=== PATIENT | male | born 1950 | race Asian ===

== ENCOUNTER → 2024-05-14 | Outpatient (CLI) | payer OTHER, SELFPAY ==
[2024-05-14 12:51] LABS: Basophils % (Auto) 1 % (0-2.5); Eosinophils # (Auto) 0.3 Thou/mm3 (0.0-0.5); Eosinophils % (Auto) 7 % (0-10); Hematocrit 30.7 % (41.0-53.0); Hemoglobin 10.3 g/dL (13.5-16.0); Immature Granulocytes % (Auto) 1 % (0-0); Immature Granulocytes Auto 0.02 Thou/mm3 (0.00-0.00); Lymphocytes # (Auto) 0.5 Thou/mm3 (1.0-4.8); Lymphocytes % (Auto) 11 % (10-50); Mean Corpuscular HGB Conc 33.6 g/dl (31.0-37.0); Mean Corpuscular Hemoglobin 33.1 pg (25.0-35.0); Mean Corpuscular Volume 99 fL (80-100); Monocytes # (Auto) 0.2 Thou/mm3 (0.0-0.8); Monocytes % (Auto) 5 % (0-12); Neutrophils # (Auto) 3.2 Thou/mm3 (1.8-7.7); Neutrophils % (Auto) 76 % (37-80); Nucleated Red Blood Cell % 0 /100 WBC (0); RDW Standard Deviation 61.6 fL (35.1-43.9); Red Blood Count 3.11 Miln/mm3 (4.50-5.90); White Blood Count 4.2 Thou/mm3 (3.8-10.6)
[2024-05-14 13:07] LABS: Platelet Count 56 Thou/mm3 (140-440)
[2024-05-14 13:11] LABS: Alanine Aminotransferase 22 U/L (10-49); Albumin/Globulin Ratio 1.2 (1.2-2.2); Alkaline Phosphatase 177 U/L (46-116); Amylase 165 U/L (30-118); Anion Gap 4 (7-16); Aspartate Amino Transferase 30 U/L (0-34); BUN/Creatinine Ratio 14 Ratio (12-20); Blood Urea Nitrogen 25 mg/dL (9-23); Calcium 9.4 mg/dL (8.3-10.6); Calcium (Corrected) 9.4 mg/dL (8.5-10.1); Carbon Dioxide 24.7 mMol/L (20.0-31.0); Chloride 108 mMol/L (98-107); Creatinine (Component) 1.8 mg/dL (0.6-1.3); Globulin 3.4 gm/dL (2.3-3.5); Glucose 151 mg/dL (74-106); Lipase 41 U/L (12-53); Osmolality,Calculated 281 (275-295); Potassium 5.5 mMol/L (3.4-5.1); Sodium 137 mMol/L (136-145); Total Protein 7.4 gm/dL (5.7-8.2); eGFR 39 See Note
[2024-05-14 13:14] LABS: Slide Review Platelets confirmed
[2024-05-18 03:04] LABS: HCV RNA, PCR <15 NOT DETECTED IU/mL
[2024-05-18 06:49] LABS: HCV RNA, PCR Log IU <1.18 NOT DETECTED Log IU/mL
== END | disposition home or self-care (01) ==
LOC: COPL 12:14
PROVIDERS: PCP Internal Medicine; Referring Provider Specialist; Visit Provider Specialist
DX: B17.10 Acute hepatitis C without hepatic coma (principal)
CPT/HCPCS: 36415; 80053; 82105; 82150; 83690; 85025; 87522

== ENCOUNTER → 2024-05-21 | Outpatient (CLI) | payer OTHER, SELFPAY ==
--- NOTE | 2024-05-21 | XR_ITS ---
Examination: Testicular sonography complete TECHNIQUE: By resolution grayscale sonographic images testes with assessment arterial inflow venous outflow Doppler spectral analysis carful analysis INDICATIONS: Left testicular pain one year is 18 fluid from the left testicle FINDINGS: Right testis 3.4 x 1.4 x 2.5 cm Epididymis 10 mm 3 mm epididymal cyst Moderate varicoceles Arterial flow testicle. No testicular mass Mild hydrocele Left testis 3.1 x 1.4 x 2.4 cm Epididymis 9 mm 4 mm epididymal cyst Moderate varicoceles Arterial flow testicle No testicular mass Moderate hydrocele IMPRESSION: No testicular torsion or testicular mass Moderate bilateral varicoceles Moderate left hydrocele
== END | disposition home or self-care (01) ==
LOC: CDIM 09:37
PROVIDERS: PCP Internal Medicine; Referring Provider Internal Medicine; Visit Provider Internal Medicine
DX: I86.1 Scrotal varices (principal); N43.3 Hydrocele, unspecified
CPT/HCPCS: 76870

== ENCOUNTER 2024-06-12 12:45 | Day surgery (SDC) | payer OTHER, SELFPAY ==
[2024-06-12] VITALS (8 sets, daily range): BP systolic 129–166; BP diastolic 72–89; PULSE 68–76; RESP 12–19; TEMP 36.6–36.8; O2SAT 95–100; BMI 25.4
[2024-06-12] MEDS: MIDAZOLAM INJ 1 MG/ML VIAL 2 ML (ASD USE ONLY) 2 MG IV (14:30)
[2024-06-12] MEDS: fentaNYL CIT INJ 50 mCg/ML AMP 2ML (ASD USE ONLY) IV (14:31)
== END 2024-06-12 15:30 | disposition home or self-care (01) ==
PROVIDERS: PCP Internal Medicine; Referring Provider Specialist; Visit Provider Specialist
PROC: (CPT 43239; principal; 2024-06-12 13:15)
DX: I85.00 Esophageal varices without bleeding (principal); K29.70 Gastritis, unspecified, without bleeding
CPT/HCPCS: 43239; J2250; J3010

== ENCOUNTER → 2024-08-14 | Outpatient (CLI) | payer OTHER, SELFPAY ==
[2024-08-14 08:45] LABS: Glucose Estimated Average 169 mg/dL (80-131); Hemoglobin A1C 7.5 % Hgb (4.8-6.0)
[2024-08-14 08:55] LABS: Basophils % (Auto) 1 % (0-2.5); Eosinophils # (Auto) 0.7 Thou/mm3 (0.0-0.5); Eosinophils % (Auto) 15 % (0-10); Hemoglobin 10.4 g/dL (13.5-16.0); Immature Granulocytes % (Auto) 0 % (0-0); Immature Granulocytes Auto 0.01 Thou/mm3 (0.00-0.00); Lymphocytes # (Auto) 0.8 Thou/mm3 (1.0-4.8); Lymphocytes % (Auto) 18 % (10-50); Mean Corpuscular HGB Conc 35.9 g/dl (31.0-37.0); Mean Corpuscular Hemoglobin 33.7 pg (25.0-35.0); Mean Corpuscular Volume 94 fL (80-100); Monocytes # (Auto) 0.3 Thou/mm3 (0.0-0.8); Monocytes % (Auto) 6 % (0-12); Neutrophils # (Auto) 2.5 Thou/mm3 (1.8-7.7); Neutrophils % (Auto) 60 % (37-80); Nucleated Red Blood Cell % 0 /100 WBC (0); RDW Standard Deviation 48.8 fL (35.1-43.9); Red Blood Count 3.09 Miln/mm3 (4.50-5.90); White Blood Count 4.2 Thou/mm3 (3.8-10.6)
[2024-08-14 08:57] LABS: Alanine Aminotransferase 23 U/L (10-49); Albumin, Serum 3.3 gm/dL (3.4-4.8); Albumin/Globulin Ratio 1.2 (1.2-2.2); Alkaline Phosphatase 142 U/L (46-116); Anion Gap 6 (7-16); Aspartate Amino Transferase 24 U/L (0-34); BUN/Creatinine Ratio 15 Ratio (12-20); Blood Urea Nitrogen 30 mg/dL (9-23); Calcium (Corrected) 9.6 mg/dL (8.5-10.1); Carbon Dioxide 24.1 mMol/L (20.0-31.0); Cardiac Risk Estimate 2.6 RATIO (4.0-6.7); Chloride 111 mMol/L (98-107); Cholesterol 169 mg/dL (132-200); Globulin 2.8 gm/dL (2.3-3.5); Glucose 190 mg/dL (74-106); HDL Cholesterol 65 mg/dL (40-60); LDL Cholesterol,Calculated 88 mg/dL (0-130); Osmolality,Calculated 292 (275-295); Potassium 5.1 mMol/L (3.4-5.1); Sodium 141 mMol/L (136-145); Total Protein 6.1 gm/dL (5.7-8.2); Triglycerides 79 mg/dL (30-150); eGFR 34 See Note
[2024-08-14 09:14] LABS: Platelet Count 40 Thou/mm3 (140-440)
[2024-08-14 09:53] LABS: Slide Review Platelets confirmed
== END | disposition home or self-care (01) ==
PROVIDERS: PCP Internal Medicine; Referring Provider Internal Medicine; Visit Provider Internal Medicine
DX: I10 Essential (primary) hypertension (principal); D50.0 Iron deficiency anemia secondary to blood loss (chronic); R94.5 Abnormal results of liver function studies; E78.2 Mixed hyperlipidemia
CPT/HCPCS: 36415; 80053; 80061; 83036; 85025

== ENCOUNTER → 2024-10-02 | Outpatient (CLI) | payer OTHER, SELFPAY ==
[2024-10-02 14:22] LABS: Basophils % (Auto) 1 % (0-2.5); Eosinophils # (Auto) 0.2 Thou/mm3 (0.0-0.5); Eosinophils % (Auto) 9 % (0-10); Hematocrit 27.1 % (41.0-53.0); Hemoglobin 9.4 g/dL (13.5-16.0); Immature Granulocytes % (Auto) 0 % (0-0); Lymphocytes # (Auto) 0.4 Thou/mm3 (1.0-4.8); Lymphocytes % (Auto) 16 % (10-50); Mean Corpuscular HGB Conc 34.7 g/dl (31.0-37.0); Mean Corpuscular Hemoglobin 33.8 pg (25.0-35.0); Mean Corpuscular Volume 98 fL (80-100); Monocytes # (Auto) 0.2 Thou/mm3 (0.0-0.8); Monocytes % (Auto) 6 % (0-12); Neutrophils # (Auto) 1.8 Thou/mm3 (1.8-7.7); Neutrophils % (Auto) 69 % (37-80); Nucleated Red Blood Cell % 0 /100 WBC (0); RDW Standard Deviation 53.2 fL (35.1-43.9); Red Blood Count 2.78 Miln/mm3 (4.50-5.90)
[2024-10-02 14:28] LABS: Platelet Count 33 Thou/mm3 (140-440); White Blood Count 2.6 Thou/mm3 (3.8-10.6)
[2024-10-02 14:33] LABS: Alanine Aminotransferase 40 U/L (10-49); Albumin, Serum 3.5 gm/dL (3.4-4.8); Albumin/Globulin Ratio 1.3 (1.2-2.2); Alkaline Phosphatase 147 U/L (46-116); Anion Gap 7 (7-16); Aspartate Amino Transferase 37 U/L (0-34); BUN/Creatinine Ratio 18 Ratio (12-20); Bilirubin,Total 1.3 mg/dL (0.3-1.2); Blood Urea Nitrogen 32 mg/dL (9-23); Calcium 8.9 mg/dL (8.3-10.6); Calcium (Corrected) 9.3 mg/dL (8.5-10.1); Carbon Dioxide 20.6 mMol/L (20.0-31.0); Chloride 110 mMol/L (98-107); Creatinine (Component) 1.8 mg/dL (0.6-1.3); Globulin 2.8 gm/dL (2.3-3.5); Glucose 314 mg/dL (74-106); Osmolality,Calculated 294 (275-295); Potassium 5.8 mMol/L (3.4-5.1); Sodium 138 mMol/L (136-145); Total Protein 6.3 gm/dL (5.7-8.2); eGFR 39 See Note
[2024-10-02 14:46] LABS: Slide Review Platelets confirmed
[2024-10-02 15:10] LABS: Hepatitis A Antibody IgM Non Reactive (Non React); Hepatitis B Core Antibody IgM Non Reactive (Non React); Hepatitis C Antibody Non Reactive (Non React)
[2024-10-02 17:03] LABS: Hepatitis B Surface Antigen Reactive (Non React)
[2024-10-02 17:05] LABS: ZZHep B Surface Ag Confrm* See Sep Rpt
== END | disposition home or self-care (01) ==
LOC: COPL 13:08
PROVIDERS: PCP Internal Medicine; Referring Provider Nurse Practitioner; Visit Provider Nurse Practitioner
DX: D69.6 Thrombocytopenia, unspecified (principal); K76.9 Liver disease, unspecified
CPT/HCPCS: 36415; 80053; 80074; 82105; 85025; 87340

== ENCOUNTER → 2024-12-31 | Outpatient (CLI) | payer OTHER, SELFPAY ==
[2024-12-31 08:38] LABS: Collection Type, Urine Clean Catch; Squamous Epithelial Cell,Urine 0 /hpf (0-5)
[2024-12-31 09:13] LABS: Basophils # (Auto) 0.0 Thou/mm3 (0.0-0.2); Basophils % (Auto) 1 % (0-2.5); Eosinophils # (Auto) 0.4 Thou/mm3 (0.0-0.5); Eosinophils % (Auto) 11 % (0-10); Hematocrit 25.6 % (41.0-53.0); Immature Granulocytes Auto 0.01 Thou/mm3 (0.00-0.00); Lymphocytes # (Auto) 0.5 Thou/mm3 (1.0-4.8); Lymphocytes % (Auto) 13 % (10-50); Mean Corpuscular HGB Conc 34.4 g/dl (31.0-37.0); Mean Corpuscular Hemoglobin 34.5 pg (25.0-35.0); Mean Corpuscular Volume 100 fL (80-100); Monocytes # (Auto) 0.2 Thou/mm3 (0.0-0.8); Monocytes % (Auto) 6 % (0-12); Neutrophils # (Auto) 2.8 Thou/mm3 (1.8-7.7); Neutrophils % (Auto) 69 % (37-80); Nucleated Red Blood Cell # 0.00 Thou/mm3 (0.00-0.00); Nucleated Red Blood Cell % 0 /100 WBC (0); RDW Standard Deviation 52.1 fL (35.1-43.9); Red Blood Count 2.55 Miln/mm3 (4.50-5.90); White Blood Count 4.0 Thou/mm3 (3.8-10.6)
[2024-12-31 09:16] LABS: Glucose Estimated Average 160 mg/dL (80-131); Hemoglobin A1C 7.2 % Hgb (4.8-6.0)
[2024-12-31 09:22] LABS: Alanine Aminotransferase 67 U/L (10-49); Albumin, Serum 3.8 gm/dL (3.4-4.8); Albumin/Globulin Ratio 1.3 (1.2-2.2); Alkaline Phosphatase 168 U/L (46-116); Anion Gap 6 (7-16); Aspartate Amino Transferase 38 U/L (0-34); BUN/Creatinine Ratio 14 Ratio (12-20); Bilirubin,Total 1.2 mg/dL (0.3-1.2); Blood Urea Nitrogen 30 mg/dL (9-23); Calcium 9.2 mg/dL (8.3-10.6); Calcium (Corrected) 9.4 mg/dL (8.5-10.1); Carbon Dioxide 19.7 mMol/L (20.0-31.0); Cardiac Risk Estimate 2.2 RATIO (4.0-6.7); Chloride 115 mMol/L (98-107); Cholesterol 136 mg/dL (132-200); Creatinine (Component) 2.2 mg/dL (0.6-1.3); Globulin 2.9 gm/dL (2.3-3.5); Glucose 134 mg/dL (74-106); HDL Cholesterol 62 mg/dL (40-60); LDL Cholesterol,Calculated 59 mg/dL (0-130); Osmolality,Calculated 289 (275-295); Sodium 141 mMol/L (136-145); Total Protein 6.7 gm/dL (5.7-8.2); Triglycerides 73 mg/dL (30-150); eGFR 30 See Note
[2024-12-31 09:25] LABS: Potassium 6.5 mMol/L (3.4-5.1)
[2024-12-31 09:26] LABS: Hemoglobin 8.8 g/dL (13.5-16.0); Platelet Count 45 Thou/mm3 (140-440)
[2024-12-31 11:55] LABS: Slide Review Platelets confirmed
[2024-12-31 13:15] LABS: Bilirubin,Urine Negative (Negative); Blood,Urine Negative (Negative); Clarity,Urine Clear (Clear/Hazy); Color,Urine Lt-Yellow (Lt Yel-Yel); Glucose, Urine Negative (Negative); Ketones,Urine Negative (Negative); Leukocyte Esterase,Urine Negative (Negative); Nitrite,Urine Negative (Negative); PH,Urine 6.0 (5.0-7.0); Protein,Urine 2+ (Neg - Trace); RBC,Urine 3 /hpf (0-3); Specific Gravity,Urine 1.017 (1.001-1.035); Urobilinogen,Urine Negative mg/dL (0.0-1.0); WBC,Urine < 1 /hpf (0-5)
== END | disposition home or self-care (01) ==
LOC: COPL 07:16
PROVIDERS: PCP Internal Medicine; Referring Provider Internal Medicine; Visit Provider Internal Medicine
DX: E11.65 Type 2 diabetes mellitus with hyperglycemia (principal); E78.2 Mixed hyperlipidemia; D50.0 Iron deficiency anemia secondary to blood loss (chronic)
CPT/HCPCS: 36415; 80053; 80061; 81001; 83036; 85025

== ENCOUNTER → 2025-01-04 | Outpatient (CLI) | payer OTHER, SELFPAY ==
[2025-01-04 10:54] LABS: Alanine Aminotransferase 40 U/L (10-49); Albumin, Serum 3.9 gm/dL (3.4-4.8); Albumin/Globulin Ratio 1.3 (1.2-2.2); Alkaline Phosphatase 171 U/L (46-116); Anion Gap 7 (7-16); Aspartate Amino Transferase 32 U/L (0-34); BUN/Creatinine Ratio 14 Ratio (12-20); Bilirubin,Total 1.1 mg/dL (0.3-1.2); Blood Urea Nitrogen 31 mg/dL (9-23); Calcium 9.3 mg/dL (8.3-10.6); Calcium (Corrected) 9.4 mg/dL (8.5-10.1); Carbon Dioxide 21.6 mMol/L (20.0-31.0); Chloride 114 mMol/L (98-107); Creatinine (Component) 2.2 mg/dL (0.6-1.3); Globulin 3.0 gm/dL (2.3-3.5); Glucose 163 mg/dL (74-106); Osmolality,Calculated 295 (275-295); Sodium 143 mMol/L (136-145); Total Protein 6.9 gm/dL (5.7-8.2); eGFR 30 See Note
[2025-01-04 10:55] LABS: Potassium 6.9 mMol/L (3.4-5.1)
== END | disposition home or self-care (01) ==
LOC: COPL 09:17
PROVIDERS: PCP Internal Medicine; Referring Provider Internal Medicine; Visit Provider Internal Medicine
DX: I10 Essential (primary) hypertension (principal)
CPT/HCPCS: 36415; 80053

== ENCOUNTER 2025-01-05 09:37 | Emergency (ER) | payer OTHER, SELFPAY ==
[2025-01-05 09:38] VITALS: BMI 23.4
--- NOTE | 2025-01-05 09:45 | EKG_ITS ---
[facility] Test Date: 2025-01-05 Pat Name: LUIZ YODER Department: Room: - Gender: Male Medical Sales Representative: : 1950 Requested By: Omi Copeland (BALLISTIC TECHNICIAN) Order Number: [id number] Reading MD: Omi Copeland (BALLISTIC TECHNICIAN) Measurements Intervals [place] Rate: 63 P: 56 MS: 151 QRS: 26 QRSD: 90 T: 50 QT: 390 QTc: 400 Interpretive Statements SINUS RHYTHM WITH OCCASIONAL VENTRICULAR PREMATURE COMPLEXES Compared to ECG 04/19/2024 19:19:49 Ventricular premature complex(es) now present /store/S0/[id number]/ecg/[id number].pdf
[2025-01-05 09:47] VITALS: BP 151/70; PULSE 65; RESP 17; TEMP 36.6; O2SAT 98
[2025-01-05 10:28] LABS: Basophils # (Auto) 0.0 Thou/mm3 (0.0-0.2); Basophils % (Auto) 1 % (0-2.5); Eosinophils # (Auto) 0.5 Thou/mm3 (0.0-0.5); Eosinophils % (Auto) 12 % (0-10); Hematocrit 27.0 % (41.0-53.0); Hemoglobin 9.5 g/dL (13.5-16.0); Immature Granulocytes Auto 0.00 Thou/mm3 (0.00-0.00); Lymphocytes # (Auto) 0.5 Thou/mm3 (1.0-4.8); Lymphocytes % (Auto) 13 % (10-50); Mean Corpuscular HGB Conc 35.2 g/dl (31.0-37.0); Mean Corpuscular Hemoglobin 34.1 pg (25.0-35.0); Mean Corpuscular Volume 97 fL (80-100); Monocytes # (Auto) 0.2 Thou/mm3 (0.0-0.8); Monocytes % (Auto) 5 % (0-12); Neutrophils # (Auto) 2.8 Thou/mm3 (1.8-7.7); Neutrophils % (Auto) 69 % (37-80); Nucleated Red Blood Cell # 0.00 Thou/mm3 (0.00-0.00); Nucleated Red Blood Cell % 0 /100 WBC (0); RDW Standard Deviation 50.4 fL (35.1-43.9); Red Blood Count 2.79 Miln/mm3 (4.50-5.90); White Blood Count 4.0 Thou/mm3 (3.8-10.6)
[2025-01-05 11:02] LABS: Alanine Aminotransferase 38 U/L (10-49); Albumin, Serum 4.0 gm/dL (3.4-4.8); Albumin/Globulin Ratio 1.3 (1.2-2.2); Alkaline Phosphatase 154 U/L (46-116); Anion Gap 7 (7-16); Aspartate Amino Transferase 35 U/L (0-34); BUN/Creatinine Ratio 13 Ratio (12-20); Bilirubin,Total 1.5 mg/dL (0.3-1.2); Blood Urea Nitrogen 27 mg/dL (9-23); Calcium 9.3 mg/dL (8.3-10.6); Calcium (Corrected) 9.3 mg/dL (8.5-10.1); Carbon Dioxide 20.7 mMol/L (20.0-31.0); Chloride 112 mMol/L (98-107); Creatinine (Component) 2.1 mg/dL (0.6-1.3); Estimated Creatinine Clearance 21.2 mL/min (>60); Globulin 3.1 gm/dL (2.3-3.5); Glucose 165 mg/dL (74-106); Magnesium 1.4 mg/dL (1.6-2.6); Osmolality,Calculated 288 (275-295); Sodium 140 mMol/L (136-145); Total Protein 7.1 gm/dL (5.7-8.2); Troponin I < 0.020 ng/mL (0.0-0.045); eGFR 32 See Note
[2025-01-05 11:14] LABS: Platelet Count 43 Thou/mm3 (140-440)
[2025-01-05 11:24] LABS: Potassium 6.2 mMol/L (3.4-5.1)
[2025-01-05 11:51] VITALS: BP 166/81; PULSE 67; RESP 16; TEMP 36.3; O2SAT 99
[2025-01-05 13:00] VITALS: BP 164/104; PULSE 72; RESP 17; TEMP 36.4; O2SAT 100
--- NOTE | 2025-01-05 13:25 | PD.EDADULT ---
ED General RME/HPI General Chief complaint: General Adult/Misc Complain Stated complaint: HIGH K+ 6.9; SENT BY PCP Time Seen by Provider: 01/05/25 09:41 Arrival date/time: 01/05/25 09:37 Limitations: no limitations RME / HPI RME / HPI narrative: 74 year old male presents to the ED sent by PCP for further evaluation and management of elevated potassium today. While in the ED reports no complaints. Patient mentioned the labs he had performed with PCP yesterday were part of a routine check up and had no specific complaints. Denies fevers, chills, chest pain, cough, shortness of breath, abdominal pain, n/v/d, or urinary symptoms. Related Data Home Medications ?Medication ?Instructions ?Recorded ?Confirmed cyanocobalamin (vitamin B-12) 500 mcg PO QDAY 06/12/24 06/12/24 1,000 mcg tablet folic acid 1 mg tablet 1 mg PO QDAY 06/12/24 06/12/24 metformin 1,000 mg tablet 1,000 mg PO BID 06/12/24 06/12/24 spironolactone 25 mg tablet 25 mg PO QAM PRN swelling 06/12/24 06/12/24 Allergies Allergy/AdvReac Type Severity Reaction Status Date / Time No Known Allergies Allergy Verified 01/05/25 09:42 Review of Systems Review of Systems Systems Reviewed: All systems reviewed, normal except as documented Past Medical History Past Medical History CARDIAC: Positive Hypertension GASTROINTESTINAL: Positive Hepatitis (HEP C) and Esophageal Varices MUSCULOSKELETAL: Positive Arthritis and Gout ENDOCRINE: Positive Endocrine Disorders and Diabetes Mellitus Type 2 PSYCHO/SOCIAL: Positive Depression (PT 2 YRS AGO) OTHER HISTORY: Positive Blood Transfusions Family History FAMILY HISTORY: Negative Family Cancer Social History SMOKING STATUS: Former smoker SECOND HAND EXPOSURE: No ED Exam General Limitations: Present no limitations General appearance: Present alert and in no apparent distress Head Head exam: Present atraumatic and normocephalic Eye Eye exam: Present normal appearance, PERRL and EOMI ENT ENT exam: Present normal exam, normal oropharynx and mucous membranes moist Neck Neck exam: Present normal inspection, full ROM and trachea midline Chest Chest inspection: Present normal inspection and symmetric chest wall rise Respiratory Respiratory exam: Present normal lung sounds bilaterally Cardiovascular Cardiovascular exam: Present regular rate, normal rhythm and normal heart sounds Abdominal Exam Abdominal exam: Present soft and normal bowel sounds Extremities Exam Extremities exam: Present normal inspection and full ROM Back Exam Back exam: Present normal inspection and full ROM Neurological Exam Neurological exam: Present alert, oriented X3 and CN II-XII intact Psychiatric Psychiatric exam: Present normal affect and normal mood Skin Skin exam: Present warm, dry, intact and normal color Course Quality Measures none Orders Category Date Time Status Meteorological Observer NOW Care 01/05/25 09:45 Active EKG (ED ONLY) *Do not use* NOW Care 01/05/25 09:45 Completed EKG (ED Only) Stat Exams 01/05/25 09:45 Draft CBC Stat Lab 01/05/25 10:05 Results CMP [Comprehensive Metabolic Panel] Stat Lab 01/05/25 10:05 Completed Mag [Magnesium] Stat Lab 01/05/25 10:05 Completed Path Review Blood Smear Stat Lab 01/05/25 10:05 Results Potassium Stat Lab 01/05/25 15:05 Completed Troponin I Stat Lab 01/05/25 10:05 Completed Calcium Chloride 10% Abboject Med 01/05/25 13:20 Discontinued 10 ml IV X1 ONE Dextrose 50% Syr [D50w Syringe Abboject] Med 01/05/25 13:20 Discontinued 50 ml IVP X1 ONE Insulin Regular Med 01/05/25 13:20 Discontinued 8 unit IV X1 ONE Sod Polystyrene Sulfon Susp [Kayexalate Susp] Med 01/05/25 13:20 Discontinued 30 gm PO X1 ONE Sodium Bicarb 8.4% SYR Med 01/05/25 13:20 Discontinued 50 ml IV X1 ONE Vital Signs Vital signs: Vital Signs Temperature 97.9 F 01/05/25 09:47 Pulse Rate 65 01/05/25 09:47 Respiratory Rate 17 01/05/25 09:47 Blood Pressure 151/70 H 01/05/25 09:47 Pulse Oximetry (%) 98 01/05/25 09:47 Oxygen Delivery Method Room Air 01/05/25 09:47 Pulse ox is 98% on room air which is adequate. Critical Care Time Critical Care Time Critical Care Time: Yes Total Critical Care Time (min.): 45 Attestation: The high probability of sudden, clinically significant deterioration in the patient's condition required the highest level of my preparedness to intervene urgently. The services I provided to this patient were to treat and/or prevent clinically significant deterioration. Services included the following: chart data review, reviewing nursing notes and/or old charts, documentation time, communications consultant collaboration regarding findings and treatment options, medication orders and management, direct patient care, vital sign assessments and ordering, interpreting and reviewing diagnostic studies and lab tests. Aggregate critical care time includes only time during which I was engaged in work directly related to the patient's care, as described above, whether at bedside or elsewhere in the Emergency Department. It did not include time spent performing other reported procedures or the services of residents, students, nurses or physician assistants. Discharge Plan Plan Patient Disposition: HOME (Self Care) Prescriptions/Referrals Prescriptions/Med Rec: No Action cyanocobalamin (vitamin B-12) 1,000 mcg tablet 500 mcg PO QDAY spironolactone 25 mg tablet 25 mg PO QAM PRN (Reason: swelling ) metformin 1,000 mg tablet 1,000 mg PO BID folic acid 1 mg tablet 1 mg PO QDAY Patient Comments: take 1 tablet by mouth once daily Referrals: Paulette Balir MD [Primary Care Provider] - In 1 week Problem List Clinical Impression: Acute hyperkalemia Patient/Caregiver Discharge Instructions Additional Instructions: Hold the Spironolactone and follow up with your doctor tomorrow. You can return to the emergency department sooner if symptoms worsen or if you notice any new, concerning issues. Print Language: Ivorian Stand Alone Forms: Dorota Award Info., Patient Portal Info Letter MDM Narrative [facility] hospital course: Mery Kim am scribing for and in the presence of Dr. Bass. Clinical Information Provided by patient Medical Records Reviewed [facility] I reviewed H&P on 06/12/2024 Meds/Rx Considered, not Ordered None Labs/Rad/Tests considered, not Ordered None Chronic Illness/Social Conditions which may negatively complicate care or outcome(s)-explain: None or not applicable EKG Interpretation EKG #1: Date/time of EK01/05/25 9:49 am EKG interpretation: sinus rhythm with occasional PVCs, rate 63, no STEMI. Lab Interpretation Labs: interpreted by va Lab(s) interpretation(s): Potassium is 5.1 Imaging Imaging interpretation: none Medication Administration(s) Medication Administration History Discontinued Medications Calcium Chloride (Calcium Chloride 10% Inj 10 Ml Syrg) 10 ml IV X1 ONE Stop: 01/05/25 13:21 Last Admin: 01/05/25 13:52 Dose: 10 ml Documented By: CG Dextrose (Dextrose 50%-Water Inj 50 Ml Syringe) 50 ml IVP X1 ONE Stop: 01/05/25 13:21 Last Admin: 01/05/25 13:56 Dose: 50 ml Documented By: CG Insulin Human Regular (Insulin Hum Regular 1 Unit/0.01 Ml (Per Unit)) 8 unit IV X1 ONE Stop: 01/05/25 13:21 Last Admin: 01/05/25 14:02 Dose: 8 unit Documented By: CG Co-signed By: MM Sodium Bicarbonate (Sodium Bicarb Inj 8.4% Syr 50 Ml Syringe) 50 ml IV X1 ONE Stop: 01/05/25 13:21 Last Admin: 01/05/25 13:54 Dose: 50 ml Documented By: CG Comments: 2minute push through 22g right wrist Sodium Polystyrene Sulfonate (Sod Polystyrene Sulfon Susp 15 Gm/60 Ml Btl) 30 gm PO X1 ONE Stop: 01/05/25 13:21 Last Admin: 01/05/25 14:00 Dose: 30 gm Documented By: CG See above Diagnosis Most likely dx, and/or detailed dx discussion: Acute hyperkalemia Dispositon Disposition: Discharge Home
[2025-01-05] MEDS: CALCIUM CHLORIDE 10% INJ 10 ML SYRG IV (13:52)
[2025-01-05] MEDS: Sodium Bicarb Inj 8.4% SYR 50 ML SYRINGE IV (13:54)
[2025-01-05] MEDS: DEXTROSE 50%-WATER INJ 50 ML SYRINGE IVP (13:56)
[2025-01-05] MEDS: SOD POLYSTYRENE SULFON SUSP 15 GM/60 ML BTL 30 GM PO (14:00)
[2025-01-05] MEDS: INSULIN HUM REGULAR 1 UNIT/0.01 ML (PER UNIT) 8 UNIT IV (14:02)
[2025-01-05 14:11] VITALS: BP 183/85; PULSE 72; RESP 21; TEMP 36.6; O2SAT 99
[2025-01-05 14:52] LABS: Slide Review Platelets confirmed
[2025-01-05 15:32] LABS: Potassium 5.1 mMol/L (3.4-5.1)
[2025-01-05 16:00] VITALS: BP 171/82; PULSE 70; RESP 20; TEMP 36.3; O2SAT 99
[2025-01-05 16:16] LABS: Path Review Blood Smear Sent to Pathologist
[2025-01-05 16:50] VITALS: BP 171/82; PULSE 75; RESP 18; O2SAT 98
== END 2025-01-05 16:50 | disposition home or self-care (01) ==
PROVIDERS: Nurse Practitioner Primary Care; Emergency Provider Family Medicine; PCP Internal Medicine
DX: E87.5 Hyperkalemia (principal); I49.3 Ventricular premature depolarization
CPT/HCPCS: 36415; 80053; 83735; 84132; 84484; 85025; 93005; 96372; 96374; 96375; 99284; J1815; A9270

== ENCOUNTER → 2025-01-12 | Outpatient (CLI) | payer OTHER, SELFPAY ==
[2025-01-12 09:04] LABS: Alanine Aminotransferase 59 U/L (10-49); Albumin, Serum 3.6 gm/dL (3.4-4.8); Albumin/Globulin Ratio 1.3 (1.2-2.2); Alkaline Phosphatase 193 U/L (46-116); Anion Gap 9 (7-16); Aspartate Amino Transferase 50 U/L (0-34); BUN/Creatinine Ratio 14 Ratio (12-20); Bilirubin,Total 1.1 mg/dL (0.3-1.2); Blood Urea Nitrogen 29 mg/dL (9-23); Calcium 9.3 mg/dL (8.3-10.6); Calcium (Corrected) 9.6 mg/dL (8.5-10.1); Carbon Dioxide 24.4 mMol/L (20.0-31.0); Chloride 108 mMol/L (98-107); Creatinine (Component) 2.1 mg/dL (0.6-1.3); Globulin 2.7 gm/dL (2.3-3.5); Glucose 262 mg/dL (74-106); Osmolality,Calculated 296 (275-295); Potassium 5.7 mMol/L (3.4-5.1); Sodium 141 mMol/L (136-145); Total Protein 6.3 gm/dL (5.7-8.2); eGFR 32 See Note
== END | disposition home or self-care (01) ==
LOC: COPL 07:09
PROVIDERS: PCP Internal Medicine; Referring Provider Internal Medicine; Visit Provider Internal Medicine
DX: I10 Essential (primary) hypertension (principal)
CPT/HCPCS: 36415; 80053

== ENCOUNTER → 2025-01-18 | Outpatient (CLI) | payer OTHER, SELFPAY ==
[2025-01-18 07:51] LABS: Alanine Aminotransferase 34 U/L (10-49); Albumin, Serum 3.5 gm/dL (3.4-4.8); Albumin/Globulin Ratio 1.3 (1.2-2.2); Alkaline Phosphatase 194 U/L (46-116); Anion Gap 8 (7-16); Aspartate Amino Transferase 35 U/L (0-34); BUN/Creatinine Ratio 13 Ratio (12-20); Bilirubin,Total 0.8 mg/dL (0.3-1.2); Blood Urea Nitrogen 29 mg/dL (9-23); Calcium 8.6 mg/dL (8.3-10.6); Calcium (Corrected) 9.0 mg/dL (8.5-10.1); Carbon Dioxide 25.0 mMol/L (20.0-31.0); Chloride 110 mMol/L (98-107); Creatinine (Component) 2.2 mg/dL (0.6-1.3); Globulin 2.6 gm/dL (2.3-3.5); Glucose 118 mg/dL (74-106); Osmolality,Calculated 291 (275-295); Potassium 4.5 mMol/L (3.4-5.1); Sodium 143 mMol/L (136-145); Total Protein 6.1 gm/dL (5.7-8.2); eGFR 30 See Note
[2025-01-18 07:54] LABS: Glucose Estimated Average 194 mg/dL (80-131); Hemoglobin A1C 8.4 % Hgb (4.8-6.0)
[2025-01-18 07:57] LABS: Ammonia < 10 uMol/L (11-32); Folate > 24.00 ng/mL (>5.38); Vitamin B12 570 pg/mL (211-911)
[2025-01-18 07:58] LABS: Iron 49 mcg/dL (65-175)
[2025-01-18 08:01] LABS: Basophils # (Auto) 0.0 Thou/mm3 (0.0-0.2); Basophils % (Auto) 1 % (0-2.5); Eosinophils # (Auto) 0.4 Thou/mm3 (0.0-0.5); Eosinophils % (Auto) 13 % (0-10); Hematocrit 25.9 % (41.0-53.0); Hemoglobin 8.9 g/dL (13.5-16.0); Immature Granulocytes Auto 0.00 Thou/mm3 (0.00-0.00); Lymphocytes # (Auto) 0.6 Thou/mm3 (1.0-4.8); Lymphocytes % (Auto) 20 % (10-50); Mean Corpuscular HGB Conc 34.4 g/dl (31.0-37.0); Mean Corpuscular Hemoglobin 34.6 pg (25.0-35.0); Mean Corpuscular Volume 101 fL (80-100); Monocytes # (Auto) 0.2 Thou/mm3 (0.0-0.8); Monocytes % (Auto) 7 % (0-12); Neutrophils # (Auto) 1.6 Thou/mm3 (1.8-7.7); Neutrophils % (Auto) 58 % (37-80); Nucleated Red Blood Cell # 0.00 Thou/mm3 (0.00-0.00); Nucleated Red Blood Cell % 0 /100 WBC (0); RDW Standard Deviation 51.6 fL (35.1-43.9); Red Blood Count 2.57 Miln/mm3 (4.50-5.90)
[2025-01-18 08:16] LABS: White Blood Count 2.8 Thou/mm3 (3.8-10.6)
[2025-01-18 08:17] LABS: Platelet Count 36 Thou/mm3 (140-440)
[2025-01-18 08:53] LABS: Slide Review Platelets confirmed
== END | disposition home or self-care (01) ==
LOC: COPL 06:47
PROVIDERS: PCP Internal Medicine; Referring Provider Internal Medicine; Visit Provider Internal Medicine
DX: I10 Essential (primary) hypertension (principal); E11.65 Type 2 diabetes mellitus with hyperglycemia; D50.0 Iron deficiency anemia secondary to blood loss (chronic)
CPT/HCPCS: 36415; 80053; 82140; 82607; 82746; 83036; 83540; 85025

== ENCOUNTER → 2025-02-01 | Outpatient (CLI) | payer OTHER, SELFPAY ==
[2025-02-01 11:14] LABS: Basophils # (Auto) 0.0 Thou/mm3 (0.0-0.2); Basophils % (Auto) 1 % (0-2.5); Eosinophils # (Auto) 0.3 Thou/mm3 (0.0-0.5); Eosinophils % (Auto) 7 % (0-10); Hematocrit 31.8 % (41.0-53.0); Hemoglobin 10.5 g/dL (13.5-16.0); Immature Granulocytes Auto 0.02 Thou/mm3 (0.00-0.00); Lymphocytes # (Auto) 0.5 Thou/mm3 (1.0-4.8); Lymphocytes % (Auto) 12 % (10-50); Mean Corpuscular HGB Conc 33.0 g/dl (31.0-37.0); Mean Corpuscular Hemoglobin 34.0 pg (25.0-35.0); Mean Corpuscular Volume 103 fL (80-100); Monocytes # (Auto) 0.2 Thou/mm3 (0.0-0.8); Monocytes % (Auto) 5 % (0-12); Neutrophils # (Auto) 3.2 Thou/mm3 (1.8-7.7); Neutrophils % (Auto) 75 % (37-80); Nucleated Red Blood Cell # 0.00 Thou/mm3 (0.00-0.00); Nucleated Red Blood Cell % 0 /100 WBC (0); RDW Standard Deviation 53.7 fL (35.1-43.9); Red Blood Count 3.09 Miln/mm3 (4.50-5.90); White Blood Count 4.3 Thou/mm3 (3.8-10.6)
[2025-02-01 11:27] LABS: Platelet Count 47 Thou/mm3 (140-440)
[2025-02-01 11:31] LABS: Iron 169 mcg/dL (65-175); Percent Iron Saturation 47 % (20-55); Total Iron Binding Capacity 358 mcg/dL (250-425); Unsaturated Iron Binding 189 (225-295)
[2025-02-01 11:45] LABS: Alanine Aminotransferase 26 U/L (10-49); Albumin, Serum 3.8 gm/dL (3.4-4.8); Albumin/Globulin Ratio 1.4 (1.2-2.2); Alkaline Phosphatase 145 U/L (46-116); Anion Gap 8 (7-16); Aspartate Amino Transferase 33 U/L (0-34); BUN/Creatinine Ratio 8 Ratio (12-20); Bilirubin,Total 1.6 mg/dL (0.3-1.2); Blood Urea Nitrogen 20 mg/dL (9-23); Calcium 9.2 mg/dL (8.3-10.6); Calcium (Corrected) 9.4 mg/dL (8.5-10.1); Carbon Dioxide 23.9 mMol/L (20.0-31.0); Cardiac Risk Estimate 2.4 RATIO (4.0-6.7); Chloride 112 mMol/L (98-107); Cholesterol 180 mg/dL (132-200); Creatinine (Component) 2.4 mg/dL (0.6-1.3); Globulin 2.8 gm/dL (2.3-3.5); Glucose 113 mg/dL (74-106); HDL Cholesterol 76 mg/dL (40-60); LDL Cholesterol,Calculated 91 mg/dL (0-130); Osmolality,Calculated 290 (275-295); Sodium 144 mMol/L (136-145); Total Protein 6.6 gm/dL (5.7-8.2); Triglycerides 64 mg/dL (30-150); eGFR 27 See Note
[2025-02-01 11:48] LABS: Potassium 6.2 mMol/L (3.4-5.1)
[2025-02-01 12:39] LABS: Slide Review Platelets confirmed
== END | disposition home or self-care (01) ==
LOC: COPL 09:36
PROVIDERS: PCP Internal Medicine; Referring Provider Internal Medicine; Visit Provider Internal Medicine
DX: D50.0 Iron deficiency anemia secondary to blood loss (chronic) (principal); I10 Essential (primary) hypertension; E11.65 Type 2 diabetes mellitus with hyperglycemia
CPT/HCPCS: 36415; 80053; 80061; 83540; 83550; 85025

== ENCOUNTER → 2025-02-10 | Outpatient (CLI) | payer OTHER, SELFPAY ==
[2025-02-10 09:44] LABS: Alanine Aminotransferase 20 U/L (10-49); Albumin, Serum 3.5 gm/dL (3.4-4.8); Albumin/Globulin Ratio 1.3 (1.2-2.2); Alkaline Phosphatase 123 U/L (46-116); Anion Gap 8 (7-16); Aspartate Amino Transferase 29 U/L (0-34); BUN/Creatinine Ratio 11 Ratio (12-20); Bilirubin,Total 1.4 mg/dL (0.3-1.2); Blood Urea Nitrogen 26 mg/dL (9-23); Calcium 9.6 mg/dL (8.3-10.6); Calcium (Corrected) 10.0 mg/dL (8.5-10.1); Carbon Dioxide 23.6 mMol/L (20.0-31.0); Chloride 109 mMol/L (98-107); Creatinine (Component) 2.3 mg/dL (0.6-1.3); Globulin 2.6 gm/dL (2.3-3.5); Glucose 216 mg/dL (74-106); Osmolality,Calculated 292 (275-295); Potassium 5.0 mMol/L (3.4-5.1); Sodium 141 mMol/L (136-145); Total Protein 6.1 gm/dL (5.7-8.2); eGFR 29 See Note
[2025-02-10 10:17] LABS: INR 1.1 (0.9-1.3); Partial Thromboplastin Time 27.3 Seconds (22.0-36.0); Prothrombin Time 11.8 Seconds (9.0-12.2)
== END | disposition home or self-care (01) ==
LOC: COPL 08:45
PROVIDERS: PCP Internal Medicine; Referring Provider Internal Medicine; Visit Provider Internal Medicine
DX: I10 Essential (primary) hypertension (principal); E11.21 Type 2 diabetes mellitus with diabetic nephropathy
CPT/HCPCS: 36415; 80053; 85610; 85730

== ENCOUNTER 2025-03-01 08:44 | Observation (INO) | payer OTHER, SELFPAY ==
[2025-03-01] VITALS (19 sets, daily range): BP systolic 141–186; BP diastolic 77–103; PULSE 72–90; RESP 13–24; TEMP 36.4–36.7; O2SAT 94–100; BMI 27.3; BMI 26.4
--- NOTE | 2025-03-01 09:32 | PD.EDADULT ---
ED General RME/HPI General Chief complaint: Nausea/Vomiting/Diarrhea Stated complaint: VOMITING SINCE YESTERDAY Time Seen by Provider: 03/01/25 09:01 Arrival date/time: 03/01/25 08:44 RME / HPI RME / HPI narrative: 75 year old male with history of hypertension, diabetes presents to the ED for complaint of vomiting since yesterday afternoon. Reports that the vomiting began after eating a piece of meat, which he suspects may have become stuck. He is unable to tolerate any food or liquids, stating that anything swallowed is immediately vomited. States this morning attempted to drink coffee which he could not tolerate. However, he is able to swallow saliva without difficulty. States he has no abdominal pain at rest, but reports pain after eating or drinking. His last bowel movement was Saturday night and was normal for him. Denies fever or chills. Patient mentions having an EGD performed 3 years ago, told everything appeared normal. Related Data Home Medications ?Medication ?Instructions ?Recorded ?Confirmed cyanocobalamin (vitamin B-12) 500 mcg PO QDAY 06/12/24 06/12/24 1,000 mcg tablet folic acid 1 mg tablet 1 mg PO QDAY 06/12/24 06/12/24 metformin 1,000 mg tablet 1,000 mg PO BID 06/12/24 06/12/24 spironolactone 25 mg tablet 25 mg PO QAM PRN swelling 06/12/24 06/12/24 Allergies Allergy/AdvReac Type Severity Reaction Status Date / Time No Known Allergies Allergy Verified 03/01/25 08:46 Review of Systems Review of Systems Systems Reviewed: All systems reviewed, normal except as documented Past Medical History Past Medical History CARDIAC: Positive Hypertension GASTROINTESTINAL: Positive Hepatitis and Esophageal Varices MUSCULOSKELETAL: Positive Arthritis and Gout ENDOCRINE: Positive Endocrine Disorders and Diabetes Mellitus Type 2 PSYCHO/SOCIAL: Positive Depression OTHER HISTORY: Positive Blood Transfusions Family History FAMILY HISTORY: Negative Family Cancer Social History SMOKING STATUS: Never smoker SECOND HAND EXPOSURE: No ED Exam Narrative Physical exam: GENERAL APPEARANCE: alert and oriented x 4, well-developed, well-nourished, no drooling, patient tolerating saliva HEENT: Normocephalic, atraumatic; pupils equal, round, reactive to light; EOMI; mucous membranes pink, moist; no drooling, oropharynx clear NECK: Supple LUNGS: CTABL; no wheezes, no rales, no rhonchi HEART: Regular rate, regular rhythm; normal S1, S2; 3/6 systolic murmur in the left lower sternal border radiating to the axilla ABDOMEN: mildly distended; normal BS; soft, no tenderness, no guarding, no rebound; no masses, no organomegaly, no hernia BACK: no CVA tenderness EXTREMITIES: atraumatic; no edema NEUROLOGIC: awake; alert and oriented x4; cranial nerves II-XII grossly intact; no focal sensory or motor deficits PSYCHIATRIC: appropriate mood and affect SKIN: warm, dry, normal color; no rashes Course Quality Measures none Orders Category Date Time Status Air Battle Manager NOW Care 03/01/25 10:07 Active EKG (ED ONLY) *Do not use* NOW Care 03/01/25 10:[address] chest abdomen pelvis wo Stat Exams 03/01/25 13:15 Completed EKG (ED Only) Stat Exams 03/01/25 10:07 Draft XR abdomen series w chest 1V Stat Exams 03/01/25 10:07 Completed B-Type Natriuretic Peptide Stat Lab 03/01/25 09:18 Completed CBC Stat Lab 03/01/25 09:18 Completed Comprehensive Metabolic Panel Stat Lab 03/01/25 09:18 Completed Lipase Stat Lab 03/01/25 09:18 Completed Magnesium Stat Lab 03/01/25 09:18 Completed Partial Thromboplastin Time Stat Lab 03/01/25 09:18 Completed Prothrombin Time with INR Stat Lab 03/01/25 09:18 Completed Troponin I Stat Lab 03/01/25 09:18 Completed Metoclopramide Inj [Reglan Inj] Med 03/01/25 14:55 Discontinued 10 mg IVP X1 ONE Ondansetron Inj [Zofran Inj] Med 03/01/25 12:32 Discontinued 4 mg IVP X1 ONE Sodium Chloride 0.9% 1000 ml [Ns] 1,000 ml Med 03/01/25 12:31 Discontinued IV 999 mls/hr hydrALAZINE INJ [Apresoline Inj] Med 03/01/25 12:54 Discontinued 10 mg IVP X1 ONE Vital Signs Vital signs: Vital Signs Temperature 97.9 F 03/01/25 09:11 Pulse Rate 80 03/01/25 09:11 Respiratory Rate 17 03/01/25 09:11 Blood Pressure 184/81 H 03/01/25 09:11 Pulse Oximetry (%) 99 03/01/25 09:11 Oxygen Delivery Method Room Air 03/01/25 09:11 Pulse ox is 99% on room air which is adequate. Discharge Plan Prescriptions/Referrals Prescriptions/Med Rec: No Action cyanocobalamin (vitamin B-12) 1,000 mcg tablet 500 mcg PO QDAY spironolactone 25 mg tablet 25 mg PO QAM PRN (Reason: swelling ) metformin 1,000 mg tablet 1,000 mg PO BID folic acid 1 mg tablet 1 mg PO QDAY Patient Comments: take 1 tablet by mouth once daily Referrals: Paulette Blair MD [Primary Care Provider] - In 1 week Problem List Clinical Impression: Esophageal obstruction Patient/Caregiver Discharge Instructions Print Language: Tajik MDM Narrative MDM hospital course: Mery Kim am scribing for and in the presence of Dr. Bass. 1310: Patient failed po trial. Will consult with GI Dr. Hernadez. 1800: Patient signed out to Dr. Aaron pending final disposition. Clinical Information Provided by patient Medical Records Reviewed [facility] Meds/Rx Considered, not Ordered None Labs/Rad/Tests considered, not Ordered None Chronic Illness/Social Conditions which may negatively complicate care or outcome(s)-explain: None or not applicable EKG Interpretation EKG #1: Date/time of EK03/01/25 10:44 AM EKG interpretation: NSR, rate 76, no acute ischemic changes, no STEMI. Lab Interpretation Lab(s) interpretation(s): Hemoglobin chronically low Hypernatremia Imaging Radiology reports / interpretation(s): Ordering Physician: Alondra Vieira MD Date of Service: 03/01/25 Procedure(s): XR abdomen series w chest 1V Accession Number(s): [id number] cc: Carlos Moctezuma MD; Paulette Blair MD; Alondra Vieira MD~ Examination: AP chest single view Technique: Sitting portable AP chest single view Date and time: 9 07/07/2024, 10:40 AM, comparison April 19, 2024 Indications: Dysphagia today Findings: Mild prominence left ventricle Accentuation interstitial markings at the lung bases No pulmonary edema Moderate osteopenia Impression: Accentuation interstitial markings at the lung bases, differential would include bronchitis, bronchiectasis, clinical correlation advised Dictated By: Carlos Moctezuma MD Signed By: <Electronically signed by Carlos Moctezuma MD in OV> 03/01/25 1116 Medication Administration(s) Medication Administration History Discontinued Medications Hydralazine HCl (Hydralazine Inj 20 Mg/Ml Vial) 10 mg IVP X1 ONE Stop: 03/01/25 12:55 Last Admin: 03/01/25 13:05 Dose: 10 mg Documented By: GM Sodium Chloride (Ns) 1,000 mls @ 999 mls/hr IV .Q1H1M ONE Stop: 03/01/25 13:31 Last Infusion: 03/01/25 13:33 Dose: Infused Documented By: Admin: 03/01/25 12:40 Dose: 999 mls/hr Documented By: Metoclopramide HCl (Metoclopramide Inj 5 Mg/Ml Vial 2 Ml) 10 mg IVP X1 ONE; Protocol Stop: 03/01/25 14:56 Last Admin: 03/01/25 15:05 Dose: 10 mg Documented By: Ondansetron HCl (Ondansetron Inj 2 Mg/Ml Inj 2 Ml) 4 mg IVP X1 ONE; Protocol Stop: 03/01/25 12:33 Last Admin: 03/01/25 12:38 Dose: 4 mg Documented By: See above Consultations/Discussions re: Management Consult #1: Date/time: 03/01/25 2:55 pm Physician, specialty, service, details: I spoke with GI Dr. Hernadez. Discussed patients PMHx, HPI, ED course, exam findings, labs, and radiology results. Recommends giving Reglan and will scope today. Diagnosis Most likely dx, and/or detailed dx discussion: Esophageal obstruction Dispositon Disposition: other (Signed out to Dr. Aaron pending final disposition)
--- NOTE | 2025-03-01 10:07 | EKG_ITS ---
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
--- NOTE | 2025-03-01 10:07 | XR_ITS ---
Examination: AP chest single view Technique: Sitting portable AP chest single view Date and time: 9 07/07/2024, 10:40 AM, comparison April 19, 2024 Indications: Dysphagia today Findings: Mild prominence left ventricle Accentuation interstitial markings at the lung bases No pulmonary edema Moderate osteopenia Impression: Accentuation interstitial markings at the lung bases, differential would include bronchitis, bronchiectasis, clinical correlation advised
[2025-03-01 10:35] LABS: Basophils # (Auto) 0.0 Thou/mm3 (0.0-0.2); Basophils % (Auto) 1 % (0-2.5); Eosinophils # (Auto) 0.3 Thou/mm3 (0.0-0.5); Eosinophils % (Auto) 10 % (0-10); Hematocrit 30.2 % (41.0-53.0); Hemoglobin 10.0 g/dL (13.5-16.0); Immature Granulocytes Auto 0.01 Thou/mm3 (0.00-0.00); Lymphocytes # (Auto) 0.4 Thou/mm3 (1.0-4.8); Lymphocytes % (Auto) 11 % (10-50); Mean Corpuscular HGB Conc 33.1 g/dl (31.0-37.0); Mean Corpuscular Hemoglobin 33.6 pg (25.0-35.0); Mean Corpuscular Volume 101 fL (80-100); Monocytes # (Auto) 0.2 Thou/mm3 (0.0-0.8); Monocytes % (Auto) 4 % (0-12); Neutrophils # (Auto) 2.5 Thou/mm3 (1.8-7.7); Neutrophils % (Auto) 74 % (37-80); Nucleated Red Blood Cell # 0.00 Thou/mm3 (0.00-0.00); Nucleated Red Blood Cell % 0 /100 WBC (0); RDW Standard Deviation 53.4 fL (35.1-43.9); Red Blood Count 2.98 Miln/mm3 (4.50-5.90); White Blood Count 3.4 Thou/mm3 (3.8-10.6)
[2025-03-01 10:40] LABS: Platelet Count 31 Thou/mm3 (140-440)
[2025-03-01 10:45] LABS: Alanine Aminotransferase 25 U/L (10-49); Albumin, Serum 3.8 gm/dL (3.4-4.8); Albumin/Globulin Ratio 1.4 (1.2-2.2); Alkaline Phosphatase 124 U/L (46-116); Anion Gap 10 (7-16); Aspartate Amino Transferase 33 U/L (0-34); BUN/Creatinine Ratio 16 Ratio (12-20); Bilirubin,Total 1.9 mg/dL (0.3-1.2); Blood Urea Nitrogen 31 mg/dL (9-23); Calcium 9.6 mg/dL (8.3-10.6); Calcium (Corrected) 9.8 mg/dL (8.5-10.1); Carbon Dioxide 25.1 mMol/L (20.0-31.0); Chloride 115 mMol/L (98-107); Creatinine (Component) 2.0 mg/dL (0.6-1.3); Estimated Creatinine Clearance 24.2 mL/min (>60); Globulin 2.7 gm/dL (2.3-3.5); Glucose 148 mg/dL (74-106); Lipase 41 U/L (12-53); Magnesium 1.9 mg/dL (1.6-2.6); Osmolality,Calculated 307 (275-295); Potassium 4.6 mMol/L (3.4-5.1); Sodium 150 mMol/L (136-145); Total Protein 6.5 gm/dL (5.7-8.2); Troponin I < 0.020 ng/mL (0.0-0.045); eGFR 34 See Note
[2025-03-01 10:49] LABS: INR 1.1 (0.9-1.3); Partial Thromboplastin Time 27.1 Seconds (22.0-36.0); Prothrombin Time 12.1 Seconds (9.0-12.2)
[2025-03-01 11:04] LABS: B-Type Natriuretic Peptide 47 pg/mL (0-100)
[2025-03-01 11:22] LABS: Slide Review Platelets confirmed
[2025-03-01] MEDS: ONDANSETRON INJ 2 MG/ML INJ 2 ML 4 MG IVP (12:38)
[2025-03-01] MEDS: SODIUM CHLORIDE 0.9% 1000 ML 1,000 ML 999 ML IV (12:40)
--- NOTE | 2025-03-01 12:58 | PC.NURSE ---
@1258 - PT GIVEN APPLE SAUCE & APPLE JUICE FOR PO CHALLENGE. RN AT BEDSIDE. PT TOOK A SIP OF APPLE JUICE; PT HAD EMESIS EPISODE X2. PT DID NOT PASS PO CHALLENGE AT THIS TIME.
[2025-03-01] MEDS: hydrALAZINE INJ 20 MG/ML VIAL 10 MG IVP (13:05)
--- NOTE | 2025-03-01 13:15 | XR_ITS ---
Examination: CT chest, without intravenous contrast. CT abdomen, without intravenous contrast. CT pelvis, without intravenous contrast. 2-D sagittal and coronal reconstructions. 3-D reconstructions. Date and time of exam:March 01, 2025, 1333 hrs., Comparison April 19, 2024 Indications: Diagnosis cirrhosis, unable to eat or drink today CTDI vol (mgy) 6.73 DLP (MGycm)154 Technique: Multiple CT images, 3.0 mm slice thickness, obtained chest, abdomen, pelvis, with the high-resolution 64 slice scanner.. Sagittal and coronal 2-D reconstructions are obtained. 3-D reconstructions Low dose protocols were performed. One or more of the following dose reduction techniques were used; automated exposure control, adjustment of the mA and/or KV according to patient size, use of iterative reconstruction technique. Findings: No thoracic aortic aneurysm dilatation Pulmonary artery segments are not enlarged. Esophagus is fluid filled No paratracheal tracheobronchial or bronchopulmonary adenopathy Mild enlargement cardiac contour. COPD with small bleb areas in the right upper lobe Mild pulmonary fibrosis at the lung bases Esophageal varices Cirrhosis, liver decreased in size with lobular contour Prominent splenomegaly Mild ascites Absent gallbladder No pancreatic mass Atrophic kidneys without renal calculi, no hydronephrosis Abdominal aortic calcification no aneurysmal dilatation Normal appendix Colonic diverticulosis AP prostate dimension 3.4 cm No bladder mass Fluid containing left inguinal hernia Severe osteopenia Impression: Fluid-filled esophagus, consider stricture at the gastroesophageal junction, recommend endoscopy/fluoroscopically guided esophagram follow-up COPD Mild pulmonary fibrosis at the lung bases Cirrhosis, prominent splenomegaly Mild ascites Atrophic kidneys Esophageal varices No bowel obstruction
[2025-03-01] MEDS: METOCLOPRAMIDE INJ 5 MG/ML VIAL 2 ML 10 MG IVP (15:05)
--- NOTE | 2025-03-01 18:39 | PD.EDADDENDU ---
Emergency Room Addendum <Bhavani Harrison - Last Filed: 03/01/25 23:04> Addendum Narrative: I took over the care from previous shift physician at 6 PM on 03/01/2025. See previous notes for complete H & P and ED course. I reviewed all diagnostic test results. My interpretation of the EKG is My interpretation of the chest/abdomen x-ray is Acute burst type fracture involving the L3 vertebral body, reduction in height 30%. Retropulsion of the posterior margin of this compressed vertebral body at least 7 mm, significantly narrowing the spinal canal. This fracture involves the right pedicle of L3, axial image 64. As clinically warranted, MRI lumbar spine without contrast follow-up would best assess for compression of the cauda equina secondary to the burst fracture. My review of the Chest/Abdomen/Pelvis CT report is Fluid-filled esophagus, consider stricture at the gastroesophageal junction, recommend endoscopy/fluoroscopically guided esophagram follow-up. COPD. Mild pulmonary fibrosis at the lung bases. Cirrhosis, prominent splenomegaly. Mild ascites. Atrophic kidneys. Esophageal varices. No bowel obstruction. Blood tests and urine tests Diagnoses include: Esophageal obstruction. Treatment here included IVF, Apresoline 10 mg, Zofran 4 mg, Reglan 10 mg. 1920: I discussed the case with Dr. Hernadez About the presentation and exam and diagnostics and treatments here. And need of further care in the hospital. Will accept the patient. 1922: I discussed the case with our hospitalist. About the presentation and exam and diagnostics and treatments here. And need of further care in the hospital. Will accept the patient. Mauro Aaron MD <Mauro Aaron MD - Last Filed: 03/02/25 01:03> Addendum Narrative: I took over the care from previous shift physician at 6 PM on 03/01/2025. See previous notes for complete H & P and ED course. I reviewed all diagnostic test results. Diagnoses include: Esophageal Dysphagia with esophageal stenosis 1920: I discussed the case with Dr. Hernadez About the presentation and exam and diagnostics and treatments here. And need of further care in the hospital. Recommended admission to hospitalist for EGD in the morning. 1922: I discussed the case with our hospitalist. About the presentation and exam and diagnostics and treatments here. And need of further care in the hospital. Will accept the patient. Mauro Aaron MD
--- NOTE | 2025-03-01 19:29 | PD.IMCONS ---
HPI Data of Consult Primary Care Provider: Paulette Blair MD Consult Narrative Reason for consult: Dysphagia foreign body obstruction esophagus History of present illness: 75 years old male called in by the ER physician evaluate for dysphagia which started after eating a piece of steak Patient is unable to swallow water he is able to swallow his saliva cc:: cc: Past Medical History Surgical History OTHER SURGICAL HX: Diabetes mellitus type 2 Meds Home Medications and Allergies Home Medications ?Medication ?Instructions ?Recorded ?Confirmed ?Type folic acid 1 mg tablet 1 mg PO QDAY 06/12/24 03/01/25 History metformin 1,000 mg tablet 1,000 mg PO BID 06/12/24 03/01/25 History amlodipine 2.5 mg tablet 2.5 mg PO QDAY 03/01/25 03/01/25 History ferrous fumarate 324 mg (106 mg 324 mg PO QDAY 03/01/25 03/01/25 History iron) tablet (Ferrocite) glimepiride 4 mg tablet 4 mg PO BID 03/01/25 03/01/25 History Allergies Allergy/AdvReac Type Severity Reaction Status Date / Time No Known Allergies Allergy Verified 03/01/25 08:46 Exam Vital Signs Temp Pulse Resp BP Pulse Ox O2 Del Method 97.9 F 86 18 158/82 H 96 Room Air 03/01/25 18:23 03/01/25 18:23 03/01/25 18:23 03/01/25 18:23 03/01/25 18:23 03/01/25 18:23 Routine Respiratory Exam Comments: Normal to auscultation Routine Abdominal Exam Comments: Soft nontender Results Labs 03/02/25 04:56 03/02/25 04:56 Labs: Short CBC 03/01/25 Range/Units 09:18 WBC 3.4 L (3.8-10.6) Thou/mm3 Hgb 10.0 L (13.5-16.0) g/dL Hct 30.2 L (41.0-53.0) % Plt Count 31 L D (140-440) Thou/mm3 BMP 03/01/25 09:18 Sodium 150 H Potassium 4.6 Chloride 115 H Carbon Dioxide 25.1 BUN 31 H Creatinine 2.0 H Glucose 148 H Calcium 9.6 Cardiac Enzymes 03/01/25 Range/Units 09:18 Troponin I < 0.020 (0.0-0.045) ng/mL Liver Function 03/01/25 Range/Units 09:18 Total Bilirubin 1.9 H (0.3-1.2) mg/dL AST 33 (0-34) U/L ALT 25 (10-49) U/L Alkaline Phosphatase 124 H (46-116) U/L Albumin 3.8 (3.4-4.8) gm/dL Assessment and Plan Additional Assessment & Plan Additional Plan: # Foreign body obstruction esophagus Plan N.p.o. Consent obtained for fiberoptic esophagogastroduodenoscopy with possible biopsy possible therapeutic intervention under intravenous moderate sedation Other medical problems include Diabetes mellitus type 2
--- NOTE | 2025-03-01 20:29 | PC.NURSE ---
Patient leaving unit in stable condition with Nurse at side going to have his EGD completed. No distress noted. Patent IV in place. Consent completed. Bedside report given. Patient belongings left in ED. Bag was labeled and placed in the office until patient is given a room.
--- NOTE | 2025-03-01 23:34 | ESHP_ITS ---
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 Reportedly, yesterday around noon, he choked on a piece of large meat while having lunch. This was followed by an episode of vomiting mainly stomach content. Since, he's had sensation of food stuck in the back of his mouth, with difficulty swallowing solid food as well as liquids. He hasn't had similar episodes in the past, and has been seen by GI who advised eating small portions, drinking plenty of fluids, and avoiding dry food. Last episode was more than a year ago and resolved spontaneously. He is unable to recall previous workup for esophageal motility disorder. Denies fever, chills, chest pain, cough, shortness of breath, palpitation, nausea, diarrhea, constipation, or abdominal pain, GI bleed or dark stool. Past Medical History: * As above. Past Surgical History: * Cholecystectomy Medications: * AMLODIPINE 2.5 mg daily, FERROUS FUMARATE 324 mg daily, FOLIC ACID 1 mg daily, GLIMEPIRIDE 4 mg BID. Allergies: * No known allergies. Family History: * No relevant past medical history. Social History: * Denies alcohol, drug or tobacco use. ED Course: * Afebrile, BP 184/81, HR 80, satting upper 90s on room air. * CBC remarkable for WBC 2.4 around baseline, Hgb 10.0 at baseline, PLT 31 around baseline. Normal coag studies. * CHEM panel remarkable for sodium 150, chloride 115. Renal function around baseline with CR 2.0, BUN 31, and GFR 34. Total bilirubin 1.9 and chronically elevated. GLUCOSE 148. * EKG shows sinus rhythm without acute ST changes. * CT CAP showed mild pulmonary fibrosis, cirrhosis with prominent splenomegaly, mild ascites, atrophic bilateral kidneys, esophageal varices, no SBO. In ED, he was given a 1 L NS bolus and METOCLOPRAMIDE for nausea. GI, Dr. Hernadez was consulted. Patient underwent EGD with findings of food in esophagus which was successfully removed. Esophageal ulcers were also seen along with gastritis with evidence of benign-appearing esophageal stenosis which was dilated. Recommendations included advance diet as tolerated and discharged on PROTONIX 40 mg daily. Reason for admission: Admitted under observation with the plan to advance diet as tolerated per GI recommendations. Review of Systems Review of Systems Systems Reviewed: All systems reviewed, normal except as documented Exam Vital Signs Temp Pulse Resp BP Pulse Ox O2 Del Method O2 Flow Rate 98.0 F 90 18 155/84 H 94 L Room Air 3 03/01/25 21:29 03/01/25 22:00 03/01/25 21:29 03/01/25 21:29 03/01/25 21:29 03/01/25 21:03/01/25 20:50 Narrative Exam GENERAL * Normal appearing male, NAD. HEENT * NCAT.?CHRISTIAN. Oral mucosa is moist. Patent Nares NECK * Supple, nontender, no JVD. CHEST * RRR, no m/g/r * CTAB, no w/r/r, symmetrical expansion. ABDOMEN * Soft, distended, nontender abdomen. * No guarding/rebound tenderness/masses. * Bowel sounds presents EXTREMITIES * No edema/cyanosis.? SKIN * Warm and dry, no jaundice/rashes. NEUROMUSCULAR * No lumbar or midline, no CVA, no paraspinal muscle spasm or tenderness. * Moves all 4 extremities well, with full ROM and good CSM. * ROBINS x4, CN II-XII grossly intact. * No focal neurologic deficits. PSYCHIATRY * Normal mood and affect, cooperative, no SI or HI or hallucinations. Results: Labs 03/01/25 09:18 03/01/25 09:18 Labs: Short CBC 03/01/25 Range/Units 09:18 WBC 3.4 L (3.8-10.6) Thou/mm3 Hgb 10.0 L (13.5-16.0) g/dL Hct 30.2 L (41.0-53.0) % Plt Count 31 L D (140-440) Thou/mm3 BMP 03/01/25 09:18 Sodium 150 H Potassium 4.6 Chloride 115 H Carbon Dioxide 25.1 BUN 31 H Creatinine 2.0 H Glucose 148 H Calcium 9.6 Cardiac Enzymes 03/01/25 Range/Units 09:18 Troponin I < 0.020 (0.0-0.045) ng/mL Liver Function 03/01/25 Range/Units 09:18 Total Bilirubin 1.9 H (0.3-1.2) mg/dL AST 33 (0-34) U/L ALT 25 (10-49) U/L Alkaline Phosphatase 124 H (46-116) U/L Albumin 3.8 (3.4-4.8) gm/dL Quality Measures Quality Measures none Advance care planning discussed with:: patient Medications Home Medications and Allergies Home Medications ?Medication ?Instructions ?Recorded ?Confirmed ?Type folic acid 1 mg tablet 1 mg PO QDAY 06/12/24 History metformin 1,000 mg tablet 1,000 mg PO BID 06/12/2407/25 History amlodipine 2.5 mg tablet 2.5 mg PO QDAY 03/01/2507/25 History ferrous fumarate 324 mg (106 mg 324 mg PO QDAY 5 03/01/25 History iron) tablet (Ferrocite) glimepiride 4 mg tablet 4 mg PO BID 03/01/25 5 History Allergies Allergy/AdvReac Type Severity Reaction Status Date / Time No Known Allergies Allergy Verified 03/01/25 08:46 Visit Medications Acetaminophen (Acetaminophen 325 Mg Tablet) 650 mg PO Q6H PRN PRN Reason: PAIN SCALE 1-3 (mild Stop: 03/31/25 20:32 Magnesium Hydroxide (Milk Of Magnesia Susp 30 Ml Udc) 30 ml PO QDAY PRN; Protocol PRN Reason: CONSTIPATION Stop: 03/31/25 20:32 Ondansetron HCl (Ondansetron Inj 2 Mg/Ml Inj 2 Ml) 4 mg IVP Q6H PRN; Protocol PRN Reason: NAUSEA OR VOMITING Stop: 03/31/25 20:32 Pantoprazole Sodium (Pantoprazole Inj 40 Mg Vial) 40 mg IVP QDAY PATY Stop: 04/01/25 08:59 Discontinued Medications Diphenhydramine HCl (Diphenhydramine Inj 50 Mg/Ml Vial) 25 mg IVP [id number] PRN PRN Reason: MODERATE SEDATION Fentanyl Citrate (Fentanyl Cit Inj 50 Mcg/Ml Amp 2ml) 50 mcg IVP Q2M PRN PRN Reason: MODERATE SEDATION Hydralazine HCl (Hydralazine Inj 20 Mg/Ml Vial) 10 mg IVP X1 ONE Stop: 03/01/25 12:55 Last Admin: 03/01/25 13:05 Dose: 10 mg Sodium Chloride (Ns) 1,000 mls @ 999 mls/hr IV .Q1H1M ONE Stop: 03/01/25 13:31 Last Infusion: 03/01/25 13:33 Dose: Infused Metoclopramide HCl (Metoclopramide Inj 5 Mg/Ml Vial 2 Ml) 10 mg IVP X1 ONE; Protocol Stop: 03/01/25 14:56 Last Admin: 03/01/25 15:05 Dose: 10 mg Midazolam HCl (Midazolam Inj 1 Mg/Ml Vial 2 Ml) 2 mg IVP Q2M PRN PRN Reason: Moderate Sedation Ondansetron HCl (Ondansetron Inj 2 Mg/Ml Inj 2 Ml) 4 mg IVP X1 ONE; Protocol Stop: 03/01/25 12:33 Last Admin: 03/01/25 12:38 Dose: 4 mg Assessment & Plan Plan This is a 75-year-old male with PMHx of cirrhosis related to hepatitis B/D, esophageal varices, T2DM, gastritis, diverticulitis, CKD 3B, and HTN, presenting to the ED with chief complaint of difficulty swallowing. Esophageal Dysphagia with esophageal stenosis Foreign body impaction Esophageal ulcers, gastritis Esophageal varices 2/2 liver cirrhosis Presented with acute episode of difficulty swallowing where he choked on a piece of meat followed by an episode of vomiting. He has a history of recurrent dysphagia, follows up with GI regularly. CT redemonstrated cirrhosis with prominent splenomegaly and mild ascites, presence of atrophic kidneys, and esophageal varices. On exam, abdomen slightly distended but nontender. No signs of symptoms of GI bleed. He underwent EGD earlier today showing food in esophagus which was successfully removed. Esophageal ulcers were also seen along with gastritis with evidence of benign-appearing esophageal stenosis which was dilated. Recommendations as below: ? Continue PROTONIX 40 mg IV daily, discharged on equivalent oral regimen ? Continue ZOFRAN q.6h. PRN ? Pending formal swallow eval ? Advance diet as tolerated HTN BP 141/77, HR 70. ? Resume home AMLODIPINE 2.5 mg daily Hypernatremia Sodium 158, likely in settings of GI losses. He was given 1 L NS in ED. ? Encourage oral hydration CKD 3B Renal function at baseline with creatinine 2.0, BUN 31, and EGFR of 34. ? Renally dose meds, avoid overdiuresis and NEPHROTOXINS ? Daily CMP Chronic pancytopenia Likely 2/2 CKD and liver cirrhosis. Labs are at baseline with PLT 31, Hgb 10.0, WBC 3.5. Normal coag studies. Afebrile, no signs or symptoms of GI bleed. ? Daily labs ? Transfuse if Hgb less than 7 T2DM GLUCOSE within acceptable range. ? INSULIN sliding scale ? Accu-Cheks Hx hepatitis related liver cirrhosis Chronic total bilirubinemia No signs of decompensated liver cirrhosis ? Continue monitoring Incidental finding Mild pulmonary fibrosis at the lung bases seen on CT ? Recommended outpatient follow-up Health maintenance Diet: Clear liquid, advance as tolerated GI prophylaxis: PROTONIX DVT prophylaxis: SCD Antibiotics: Not indicated CODE STATUS: Full code Disposition: Admitted under observation, advancing diet as tolerated. Case was discussed with attending physician, Dr. Douglas. Sedrick Burnham, DO PGY II This document was transcribed using voice recognition technology. Minor inaccuracies may be present. Attending Provider Attestation/Addendum After examination of the patient and review of the clinical data I feel that this patient needs admission to the hospital for further treatment/evaluation. I Glory Douglas MD, attest that I was physically present for demarco portions of evaluation, and examined patient, labs and imagings and plan of care were discussed with IM residents team, and I agree with the findings and plans documented above.
[2025-03-02] VITALS (11 sets, daily range): BP systolic 131–165; BP diastolic 69–79; PULSE 68–80; RESP 16–95; TEMP 36.3–36.9; O2SAT 94–99; BMI 26.5
[2025-03-02 05:48] LABS: Basophils # (Auto) 0.0 Thou/mm3 (0.0-0.2); Basophils % (Auto) 1 % (0-2.5); Eosinophils # (Auto) 0.3 Thou/mm3 (0.0-0.5); Eosinophils % (Auto) 10 % (0-10); Hematocrit 26.7 % (41.0-53.0); Hemoglobin 9.1 g/dL (13.5-16.0); Immature Granulocytes Auto 0.02 Thou/mm3 (0.00-0.00); Lymphocytes # (Auto) 0.4 Thou/mm3 (1.0-4.8); Lymphocytes % (Auto) 12 % (10-50); Mean Corpuscular HGB Conc 34.1 g/dl (31.0-37.0); Mean Corpuscular Hemoglobin 34.2 pg (25.0-35.0); Mean Corpuscular Volume 100 fL (80-100); Monocytes # (Auto) 0.2 Thou/mm3 (0.0-0.8); Monocytes % (Auto) 7 % (0-12); Neutrophils # (Auto) 2.2 Thou/mm3 (1.8-7.7); Neutrophils % (Auto) 70 % (37-80); Nucleated Red Blood Cell # 0.00 Thou/mm3 (0.00-0.00); Nucleated Red Blood Cell % 0 /100 WBC (0); RDW Standard Deviation 52.0 fL (35.1-43.9); Red Blood Count 2.66 Miln/mm3 (4.50-5.90); White Blood Count 3.1 Thou/mm3 (3.8-10.6)
[2025-03-02 05:58] LABS: Platelet Count 32 Thou/mm3 (140-440)
[2025-03-02 06:29] LABS: Alanine Aminotransferase 20 U/L (10-49); Albumin, Serum 3.3 gm/dL (3.4-4.8); Albumin/Globulin Ratio 1.4 (1.2-2.2); Alkaline Phosphatase 106 U/L (46-116); Anion Gap 10 (7-16); Aspartate Amino Transferase 27 U/L (0-34); BUN/Creatinine Ratio 12 Ratio (12-20); Bilirubin,Total 1.6 mg/dL (0.3-1.2); Blood Urea Nitrogen 23 mg/dL (9-23); Calcium 9.3 mg/dL (8.3-10.6); Calcium (Corrected) 9.9 mg/dL (8.5-10.1); Carbon Dioxide 21.9 mMol/L (20.0-31.0); Chloride 115 mMol/L (98-107); Creatinine (Component) 1.9 mg/dL (0.6-1.3); Estimated Creatinine Clearance 25.1 mL/min (>60); Globulin 2.3 gm/dL (2.3-3.5); Glucose 114 mg/dL (74-106); Magnesium 1.6 mg/dL (1.6-2.6); Osmolality,Calculated 297 (275-295); Phosphorous 3.5 mg/dL (2.4-5.1); Potassium 4.3 mMol/L (3.4-5.1); Sodium 147 mMol/L (136-145); Total Protein 5.6 gm/dL (5.7-8.2); eGFR 36 See Note
[2025-03-02] MEDS: Magnesium Sulfate 4 GM Ivpb 4 GM/50 ML BAG IV (08:02)
[2025-03-02] MEDS: FOLIC ACID 1 MG TABLET PO (08:03)
[2025-03-02 08:22] LABS: Slide Review Platelets confirmed
--- NOTE | 2025-03-02 10:29 | PC.SS ---
Chyna Morales is a 75 year-old male admitted to [facility] for Dysphagia/GI Bleed. SS conducted bedside contact with the patient to complete initial assessment and to discuss discharge planning. Role and reason explained. Patient confirmed demographic information. Patient identifies his Son Shanthi Morales [phone] as his surrogate decision maker. Pt states he is able to complete all ADL?s independent. Pt does not possesses any DME. Pts PCP is Johnnie. Pharmacy of choice is [facility]. Discharge options discussed and the pt wishes to return home.? Pt fam will provide transport. No further intervention required at this time, psychiatric social worker supervisor would be available to address any further concerns. DC Plan: Home Contact: Shanthi Capellan Address: Confirmed on face sheet PCP: Johnnie
[2025-03-02] MEDS: INSULIN LISPRO (AdmeLOG) 1 UNIT/0.01 ML UNIT SC (11:58)
--- NOTE | 2025-03-02 14:17 | ESDS_ITS ---
<Statement entered by Holly Barlow MD - 03/02/25 18:17> Note reviewed, I agree with most of its contents and agree with the patient's care as documented by Dr. Chavez. Patient should continue Pantoprazole 40mg daily and follow up with GI outpatient to review EGD biopsy results from 05/2024. 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 The patient's management plan was discussed with my attending physician Dr. Hernandez. Holly Barlow, PGY-2 <Statement entered by Margarita Gaitan MD - 03/02/25 16:37> I discussed with and supervised the applications intern physician who took care of this patient. I personally saw and examined the patient and discussed the assessment and plan with the entire medicine team, including my attending Dr. Hernandez, I agree with most of the assessment and plan as documented below Margarita Gaitan M.D. PGY-3 Planned Discharge Date 03/02/25 DS: Providers Provider Date of admission: 03/01/25 20:33 Primary care physician: Paulette Blair MD Admitting Provider: Glory Douglas MD Attending Provider on Admission: Geraldo Hernandez MD Consults: 03/01/25 18:25 Consult to Gastroenterology Stat Comment: Consulting Provider: Vito Hernadez 03/01/25 19:21 Consult to Gastroenterology Stat Comment: Esophageal stricture Consulting Provider: Vito Hernadez 03/02/25 00:22 Speech [Referral - CHIEF LEARNING OFFICER Maintenance Tech] Routine Comment: Attending Provider on DC: Dr. 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 Patient had an acute episode of difficulty swallowing where he choked on a piece of meat followed by an episode of vomiting. He has a history of recurrent dysphagia, follows up with GI regularly. CT redemonstrated cirrhosis with prominent splenomegaly and mild ascites, presence of atrophic kidneys, and esophageal varices. On exam, abdomen slightly distended but nontender. No signs of symptoms of GI bleed. He underwent EGD earlier today showing food in esophagus which was successfully removed. Esophageal ulcers were also seen along with gastritis with evidence of benign-appearing esophageal stenosis which was dilated. Patient tolerated clear liquid diet for breakfast followed by dysphagia diet for lunch without any nausea, emesis or dysphagia. Patient reports complete resolution of his symptoms and will be following up with GI outpatient upon discharge. As recommended by GI, patient will be discharged with prescription for Protonix 40 that he will need to take daily. Overall patient's condition improved, remained hemodynamically stable with vital signs in normal limits. Patient's all other medical problems were managed accordingly. Advised patient to follow up with their PCP outpatient for termite helper management of his liver cirrhosis and hepatitis infection. Incidental finding of pulmonary fibrosis was also found on CT, advised patient to follow up with PCP in regards to this outpatient. Previous EGD biopsy showed intestinal metaplasia of esophagus, patient will need to follow up with GI outpatient in this regards. Patient is in stable condition for discharge. All questions answered and ED return precautions given. #Esophageal Dysphagia with esophageal stenosis #Foreign body impaction #Esophageal ulcers, gastritis #Esophageal varices 2/2 liver cirrhosis #HTN #Hypernatremia #CKD 3B #Chronic pancytopenia #T2DM #Hx hepatitis related liver cirrhosis #Chronic total bilirubinemia #Incidental finding of mild Pulmonary fibrosis #Hx of Intestinal metaplasia of esophagus Start taking pantoprazole 40mg daily. Follow up with Dr. Hernadez for additional evaluation of EGD findings. Follow up with PCP in 1-2 weeks. Return to ED if symptoms worsen. Plan was discussed with attending physician Dr. Hernandez and senior residents Drs. Gaitan and Cain. Karen Chavez DO PGY-1 Status at Discharge Functional status at discharge: independent ambulation Overall status at discharge: patient is back to baseline Time Spent with Patient Time attestation: Total time spent providing and/or coordinating discharge services: Time spent: Greater than 30 minutes Exam Vital Signs Temp Pulse Resp BP Pulse Ox O2 Del Method O2 Flow Rate 98.4 F 68 16 139/73 H 94 L Room Air 3 03/02/25 08:05 03/02/25 12:00 03/02/25 08:05 03/02/25 08:05 03/02/25 08:05 03/02/25 08:05 03/01/25 20:50 Narrative Exam GENERAL * Normal appearing male, NAD.HEENT * NCAT.?CHRISTIAN. Oral mucosa is moist. Patent NaresNECK * Supple, nontender, no JVD.CHEST * RRR, no m/g/r * CTAB, no w/r/r, symmetrical expansion.ABDOMEN * Soft, distended, nontender abdomen. * No guarding/rebound tenderness/masses. * Bowel sounds presentsEXTREMITIES * No edema/cyanosis.?SKIN * Warm and dry, no jaundice/rashes.NEUROMUSCULAR * No lumbar or midline, no CVA, no paraspinal muscle spasm or tenderness. * Moves all 4 extremities well, with full ROM and good CSM. * ROBINS x4, CN II-XII grossly intact. * No focal neurologic deficits.PSYCHIATRY * Normal mood and affect, cooperative, no SI or HI or hallucinations. Discharge Plan Plan Patient Disposition: HOME (Self Care) Patient condition on transfer: Stable Prescriptions/Referrals Prescriptions/Med Rec: New pantoprazole 40 mg tablet,delayed release (DR/EC) 40 mg PO QDAY Qty: 30 0RF Continued amlodipine 2.5 mg tablet 2.5 mg PO QDAY Patient Comments: TAKE 1 TABLET BY MOUTH EVERY DAY glimepiride 4 mg tablet 4 mg PO BID Patient Comments: take 1 tablet by mouth twice a day ferrous fumarate [Ferrocite] 324 mg (106 mg iron) tablet 324 mg PO QDAY Patient Comments: TAKE 1 TABLET BY MOUTH EVERY DAY metformin 1,000 mg tablet 1,000 mg PO BID folic acid 1 mg tablet 1 mg PO QDAY Patient Comments: take 1 tablet by mouth once daily Referrals: Paulette Blair MD [Primary Care Provider] - Patient/Caregiver Discharge Instructions Other Discharge Activity Instructions:: Start taking pantoprazole 40mg daily. Follow up with Dr. Hernadez for additional evaluation of EGD findings. Follow up with PCP in 1-2 weeks. Return to ED if symptoms worsen. Education Materials: Understanding a Schatzki Ring, Anatomy of the Digestive System, ED Cirrhosis Print Language: Comoran Stand Alone Forms: [facility]ota Award Info., Patient Portal Info Letter, Work/Release Restrictions Discharge Order Discharge Orders: Discharge (Routine); Ordered 03/02/25 Ordered By: Holly Barlow Quality Discharge Quality Measures VTE prophylaxis Attestestation Attestation I have examined the patient, reviewed labs and imaging findings, discussed the case with the resident(s), and reviewed entered orders. I agree with the plan of care as outlined in this note. Time Spent: [address] David MD
--- NOTE | 2025-03-02 20:02 | PD.IMPROG ---
Documentation for date of: 03/02/25 Subjective Subjective Interval history: Late entry for the note Patient able to swallow food is going down okay to discharge patient home Exam Vital Signs Temp Pulse Resp BP Pulse Ox O2 Del Method O2 Flow Rate 97.5 F 68 17 131/69 H 99 Room Air 3 03/02/25 16:18 03/02/25 16:18 03/02/25 16:18 03/02/25 16:18 03/02/25 16:18 03/02/25 14:57 03/01/25 20:50 Objective Labs 03/02/25 04:56 03/02/25 04:56 Labs: Laboratory Results - last 24 hr 03/02/25 04:56 WBC 3.1 L RBC 2.66 L Hgb 9.1 L Hct 26.7 L MCV 100 MCH 34.2 MCHC 34.1 RDW Std Deviation 52.0 H Plt Count 32 L Neut % (Auto) 70 Lymph % (Auto) 12 [place] % (Auto) 7 Eos % (Auto) 10 Baso % (Auto) 1 Neut # (Auto) 2.2 Lymph # (Auto) 0.4 L [place] # (Auto) 0.2 Eos # (Auto) 0.3 Baso # (Auto) 0.0 Immature Gran # (Auto) 0.02 H Absolute Nucleated RBC 0.00 Immature Gran % 1 H Nucleated RBC % 0 Sodium 147 H Potassium 4.3 Chloride 115 H Carbon Dioxide 21.9 Anion Gap 10 BUN 23 Creatinine 1.9 H Estim Creat Clear Calc 25.1 L eGFR 36 L BUN/Creatinine Ratio 12 Glucose 114 H Calculated Osmolality 297 H Calcium 9.3 Corrected Calcium 9.9 Phosphorus 3.5 Magnesium 1.6 Total Bilirubin 1.6 H AST 27 ALT 20 Alkaline Phosphatase 106 Total Protein 5.6 L Albumin 3.3 L D Globulin 2.3 Albumin/Globulin Ratio 1.4 Misc Test Result Platelets confirmed Impressions Impression: Foreign body obstruction esophagus status post endoscopic removal GE junction esophageal ulceration Okay to discharge patient to be followed by the PCP on a PPI Assessment & Plan A&P Narrative # Foreign body obstruction esophagus Plan N.p.o. Consent obtained for fiberoptic esophagogastroduodenoscopy with possible biopsy possible therapeutic intervention under intravenous moderate sedation Other medical problems include Diabetes mellitus type 2 Time Spent With Patient Time: Total time spent is greater than 50% in coordination of care (as documented) at patient's floor/unit and/or counseling patient:
== END 2025-03-02 14:56 | disposition home or self-care (01) ==
LOC: SERX 20:42 → S3NX 21:27 → SERHOLD 03-02 09:39 → S3NX 03-02 09:40
PROVIDERS: Emergency Medicine; Specialist; Admitting Provider Student in an Organized Health Care Education/Training Program; Emergency Provider Emergency Medicine; PCP Internal Medicine; Visit Provider Student in an Organized Health Care Education/Training Program
PROC: (CPT 43239; principal; 2025-03-01 20:30)
DX: K22.2 Esophageal obstruction (principal); T18.128A Food in esophagus causing other injury, initial encounter; W44.F3XA Food entering into or through a natural orifice, initial encounter; K22.10 Ulcer of esophagus without bleeding; K29.70 Gastritis, unspecified, without bleeding; K74.60 Unspecified cirrhosis of liver; I85.10 Secondary esophageal varices without bleeding; E11.22 Type 2 diabetes mellitus with diabetic chronic kidney disease; I12.9 Hypertensive chronic kidney disease with stage 1 through stage 4 chronic kidney disease, or unspecified chronic kidney disease; N18.32 Chronic kidney disease, stage 3b; E87.0 Hyperosmolality and hypernatremia; D61.818 Other pancytopenia; J84.10 Pulmonary fibrosis, unspecified; R18.8 Other ascites
CPT/HCPCS: 43248; 43247; 36415; 71250; 74022; 74176; 80053; 83690; 83735; 83880; 84100; 84484; 85025; 85610; 85730; 93005; 96361; 96374; 96375; 99284; A4649; C1769; G0378; J0360; J1200; J1815; J2250; J2405; J2470; J2765; J3010; J3475; J7030; A9270

== ENCOUNTER → 2025-03-08 | Outpatient (CLI) | payer OTHER, SELFPAY ==
[2025-03-08 10:20] LABS: Ammonia 14 uMol/L (11-32)
[2025-03-08 10:21] LABS: Alanine Aminotransferase 22 U/L (10-49); Albumin, Serum 3.8 gm/dL (3.4-4.8); Albumin/Globulin Ratio 1.3 (1.2-2.2); Alkaline Phosphatase 175 U/L (46-116); Anion Gap 10 (7-16); Aspartate Amino Transferase 33 U/L (0-34); BUN/Creatinine Ratio 12 Ratio (12-20); Bilirubin,Total 0.9 mg/dL (0.3-1.2); Blood Urea Nitrogen 25 mg/dL (9-23); Calcium 9.5 mg/dL (8.3-10.6); Calcium (Corrected) 9.7 mg/dL (8.5-10.1); Carbon Dioxide 22.5 mMol/L (20.0-31.0); Chloride 113 mMol/L (98-107); Creatinine (Component) 2.1 mg/dL (0.6-1.3); Globulin 2.9 gm/dL (2.3-3.5); Glucose 128 mg/dL (74-106); Osmolality,Calculated 295 (275-295); Potassium 4.9 mMol/L (3.4-5.1); Sodium 145 mMol/L (136-145); Total Protein 6.7 gm/dL (5.7-8.2); eGFR 32 See Note
== END | disposition home or self-care (01) ==
LOC: COPL 09:19
PROVIDERS: PCP Internal Medicine; Referring Provider Internal Medicine; Visit Provider Internal Medicine
DX: I10 Essential (primary) hypertension (principal)
CPT/HCPCS: 36415; 80053; 82140

== ENCOUNTER → 2025-04-02 | Outpatient (CLI) | payer OTHER, SELFPAY ==
[2025-04-02 08:34] LABS: Basophils # (Auto) 0.0 Thou/mm3 (0.0-0.2); Basophils % (Auto) 1 % (0-2.5); Eosinophils # (Auto) 0.4 Thou/mm3 (0.0-0.5); Eosinophils % (Auto) 11 % (0-10); Hematocrit 29.1 % (41.0-53.0); Hemoglobin 10.0 g/dL (13.5-16.0); Immature Granulocytes Auto 0.02 Thou/mm3 (0.00-0.00); Lymphocytes # (Auto) 0.6 Thou/mm3 (1.0-4.8); Lymphocytes % (Auto) 14 % (10-50); Mean Corpuscular HGB Conc 34.4 g/dl (31.0-37.0); Mean Corpuscular Hemoglobin 34.2 pg (25.0-35.0); Mean Corpuscular Volume 100 fL (80-100); Monocytes # (Auto) 0.2 Thou/mm3 (0.0-0.8); Monocytes % (Auto) 5 % (0-12); Neutrophils # (Auto) 2.8 Thou/mm3 (1.8-7.7); Neutrophils % (Auto) 69 % (37-80); Nucleated Red Blood Cell # 0.00 Thou/mm3 (0.00-0.00); Nucleated Red Blood Cell % 0 /100 WBC (0); RDW Standard Deviation 53.1 fL (35.1-43.9); Red Blood Count 2.92 Miln/mm3 (4.50-5.90); White Blood Count 4.1 Thou/mm3 (3.8-10.6)
[2025-04-02 08:49] LABS: Iron 81 mcg/dL (65-175)
[2025-04-02 08:58] LABS: Alanine Aminotransferase 18 U/L (10-49); Albumin, Serum 3.6 gm/dL (3.4-4.8); Albumin/Globulin Ratio 1.4 (1.2-2.2); Alkaline Phosphatase 135 U/L (46-116); Anion Gap 8 (7-16); Aspartate Amino Transferase 22 U/L (0-34); BUN/Creatinine Ratio 10 Ratio (12-20); Bilirubin,Total 1.4 mg/dL (0.3-1.2); Blood Urea Nitrogen 22 mg/dL (9-23); Calcium 9.1 mg/dL (8.3-10.6); Calcium (Corrected) 9.4 mg/dL (8.5-10.1); Carbon Dioxide 25.4 mMol/L (20.0-31.0); Chloride 112 mMol/L (98-107); Creatinine (Component) 2.3 mg/dL (0.6-1.3); Globulin 2.6 gm/dL (2.3-3.5); Glucose 95 mg/dL (74-106); Osmolality,Calculated 292 (275-295); Potassium 5.5 mMol/L (3.4-5.1); Sodium 145 mMol/L (136-145); Total Protein 6.2 gm/dL (5.7-8.2); eGFR 29 See Note
[2025-04-02 09:04] LABS: Platelet Count 45 Thou/mm3 (140-440)
[2025-04-02 11:38] LABS: Slide Review Platelets confirmed
== END | disposition home or self-care (01) ==
LOC: COPL 07:03
PROVIDERS: PCP Internal Medicine; Referring Provider Internal Medicine; Visit Provider Internal Medicine
DX: D50.0 Iron deficiency anemia secondary to blood loss (chronic) (principal); I10 Essential (primary) hypertension; R94.5 Abnormal results of liver function studies
CPT/HCPCS: 36415; 80053; 83540; 85025

== ENCOUNTER → 2025-04-12 | Outpatient (CLI) | payer OTHER, SELFPAY ==
[2025-04-12 08:42] LABS: Ammonia < 10 uMol/L (11-32)
[2025-04-12 08:49] LABS: Alanine Aminotransferase 22 U/L (10-49); Albumin, Serum 4.0 gm/dL (3.4-4.8); Albumin/Globulin Ratio 1.4 (1.2-2.2); Alkaline Phosphatase 155 U/L (46-116); Anion Gap 9 (7-16); Aspartate Amino Transferase 31 U/L (0-34); BUN/Creatinine Ratio 12 Ratio (12-20); Bilirubin,Total 1.8 mg/dL (0.3-1.2); Blood Urea Nitrogen 28 mg/dL (9-23); Calcium 9.6 mg/dL (8.3-10.6); Calcium (Corrected) 9.6 mg/dL (8.5-10.1); Carbon Dioxide 23.2 mMol/L (20.0-31.0); Chloride 113 mMol/L (98-107); Creatinine (Component) 2.3 mg/dL (0.6-1.3); Globulin 2.9 gm/dL (2.3-3.5); Glucose 84 mg/dL (74-106); Osmolality,Calculated 293 (275-295); Potassium 5.1 mMol/L (3.4-5.1); Sodium 145 mMol/L (136-145); Total Protein 6.9 gm/dL (5.7-8.2); eGFR 29 See Note
== END | disposition home or self-care (01) ==
LOC: COPL 07:46
PROVIDERS: PCP Internal Medicine; Referring Provider Internal Medicine; Visit Provider Internal Medicine
DX: I10 Essential (primary) hypertension (principal)
CPT/HCPCS: 36415; 80053; 82140

== ENCOUNTER → 2025-05-25 | Outpatient (CLI) | payer OTHER, SELFPAY ==
[2025-05-25 10:48] LABS: Iron 125 mcg/dL (65-175)
[2025-05-25 10:50] LABS: Alanine Aminotransferase 21 U/L (10-49); Albumin, Serum 3.9 gm/dL (3.4-4.8); Albumin/Globulin Ratio 1.3 (1.2-2.2); Anion Gap 10 (7-16); Aspartate Amino Transferase 22 U/L (0-34); BUN/Creatinine Ratio 13 Ratio (12-20); Bilirubin,Total 1.5 mg/dL (0.3-1.2); Blood Urea Nitrogen 43 mg/dL (9-23); Calcium 10.0 mg/dL (8.3-10.6); Calcium (Corrected) 10.1 mg/dL (8.5-10.1); Carbon Dioxide 25.1 mMol/L (20.0-31.0); Chloride 109 mMol/L (98-107); Creatinine (Component) 3.2 mg/dL (0.6-1.3); Globulin 2.9 gm/dL (2.3-3.5); Glucose 235 mg/dL (74-106); Glucose Estimated Average 166 mg/dL (80-131); Hemoglobin A1C 7.4 % Hgb (4.8-6.0); Osmolality,Calculated 305 (275-295); Potassium 5.2 mMol/L (3.4-5.1); Sodium 144 mMol/L (136-145); Total Protein 6.8 gm/dL (5.7-8.2); eGFR 19 See Note
[2025-05-25 11:21] LABS: Alkaline Phosphatase 197 U/L (46-116)
== END | disposition home or self-care (01) ==
LOC: COPL 09:38
PROVIDERS: PCP Internal Medicine; Referring Provider Internal Medicine; Visit Provider Internal Medicine
DX: I10 Essential (primary) hypertension (principal); D50.0 Iron deficiency anemia secondary to blood loss (chronic); E11.65 Type 2 diabetes mellitus with hyperglycemia
CPT/HCPCS: 36415; 80053; 83036; 83540